=== PATIENT | female | born 1985 | race Caucasian/White ===

== ENCOUNTER 2016-09-24 18:28 | Emergency (ER) | payer OTHER ==
--- NOTE | 2016-09-24 20:29 | ER Document Report ---
ED Medical Screen (RME) - General Chief Complaint: Urinary Problem Stated Complaint: POAAIBLE KIDNEY INFECTION Mode of Arrival: Ambulatory Information source: Patient TRAVEL OUTSIDE OF THE [place] IN LAST 30 DAYS: No - HPI Onset: Other - 48 HRS Onset/Duration: Gradual, Constant, Waxing and waning Quality of pain: Sharp, Stabbing Severity: Moderate Associated Symptoms: Dysuria, Other - URINARY FREQ. Exacerbated by: Movement, Walking Relieved by: Remaining still Similar symptoms previously: Yes - W/ SEVERE UTI - Related Data Smoking: Non-smoker Frequency of alcohol use: Occasional Drug Abuse: None Allergies/Adverse Reactions: No Known Allergies Allergy (Unverified 09/24/16 20:04) Past Medical History - General Information source: Patient - Social History Cigarette use (# per day): No Chew tobacco use (# tins/day): No Frequency of alcohol use: None Drug Abuse: None Lives with: Spouse/Significant other Family history: Reviewed & Not Pertinent - Past Medical History Cardiac Medical History: Reports: None Pulmonary Medical History: Reports: None Neurological Medical History: Reports: None Endocrine Medical History: Reports: None Renal/ Medical History: Reports: Other - UTI W/ UROSEPSIS. Denies: Hx Peritoneal Dialysis GI Medical History: Reports: None Psychiatric Medical History: Reports: None Past Surgical History: Reports: Hx Section Review of Systems - Review of Systems Constitutional: Chills. denies: Fever EENT: No symptoms reported Cardiovascular: No symptoms reported Respiratory: No symptoms reported Gastrointestinal: Nausea. denies: Diarrhea, Vomiting Genitourinary: See HPI Female Genitourinary: See HPI Musculoskeletal: No symptoms reported Skin: No symptoms reported Neurological/Psychological: No symptoms reported Physical Exam - Vital signs Vitals: Temp Pulse BP Pulse Ox 98.6 F 79 117/70 100 09/24/16 20:03 09/24/16 20:03 09/24/16 20:03 09/24/16 20:03 Interpretation: Normal. No: Tachycardic, Tachypneic, Febrile Course - Vital Signs Vital signs: Temp Pulse Resp BP Pulse Ox 98.6 F 79 117/70 100 09/24/16 20:03 09/24/16 20:03 09/24/16 20:03 09/24/16 20:03
[2016-09-24] MEDS ORDERED: ONDANSETRON 4 MG TAB.RAPDIS PO ONE (20:30)
[2016-09-24] MEDS ORDERED: NITROFURANTOIN MONOHYD/M-CRYST 100 MG CAPSULE PO ONE (20:31)
[2016-09-24 20:57] LABS: AMORPHOUS SEDIMENT,URINE TRACE /HPF; APPEARANCE,URINE TURBID; BILIRUBIN,URINE NEGATIVE (NEGATIVE); GLUCOSE, URINE NEGATIVE (NEGATIVE); KETONES,URINE NEGATIVE (NEGATIVE); LEUKOCYTE ESTERASE,URINE LARGE (NEGATIVE); NITRITE,URINE NEGATIVE (NEGATIVE); PROTEIN,URINE 30 mg/dL (NEGATIVE); URINE SPECIFIC GRAVITY 1.016
--- NOTE | 2016-09-24 22:54 | ER Document Report ---
ED GI/ - General Chief Complaint: Urinary Problem Stated Complaint: POAAIBLE KIDNEY INFECTION Time seen by provider: 22:53 Mode of Arrival: Ambulatory Information source: Patient TRAVEL OUTSIDE OF THE [place] IN LAST 30 DAYS: No - HPI Patient complains to provider of: Dysuria, Flank pain Onset: Yesterday Timing/Duration: Gradual Quality of pain: Achy Severity at maximum: Moderate Severity in ED: Moderate Location: Right flank Vaginal bleeding (Compared to normal period): None Associated symptoms: Dysuria, Hematuria, Nausea, Urinary frequency Exacerbated by: Denies Relieved by: Denies Similar symptoms previously: Yes Recently seen / treated by doctor: No Notes: 09/25/16 04:11 Patient is a 31-year-old female presents complaining of urinary frequency with dysuria, right flank pain, nausea, symptoms started yesterday, and are consistent with urinary tract infections patient has had multiple times in the past, patient denies any fever, no vomiting or diarrhea, patient denies any pelvic pain or cramping, no vaginal bleeding or irregular discharge 09/25/16 04:12 Last menstrual period was July 26 - Related Data Allergies/Adverse Reactions: No Known Allergies Allergy (Unverified 09/24/16 20:04) Past Medical History - General Information source: Patient - Social History Smoking Status: Never Smoker Cigarette use (# per day): No Chew tobacco use (# tins/day): No Frequency of alcohol use: None Drug Abuse: None Lives with: Spouse/Significant other Family History: Reviewed & Not Pertinent Patient has suicidal ideation: No Patient has homicidal ideation: No - Past Medical History Cardiac Medical History: Reports: None Pulmonary Medical History: Reports: None Neurological Medical History: Reports: None Endocrine Medical History: Reports: None Renal/ Medical History: Reports: Other - UTI W/ UROSEPSIS. Denies: Hx Peritoneal Dialysis GI Medical History: Reports: None Psychiatric Medical History: Reports: None Past Surgical History: Reports: Hx Section Review of Systems - Review of Systems Constitutional: No symptoms reported EENT: No symptoms reported Cardiovascular: No symptoms reported Respiratory: No symptoms reported Gastrointestinal: No symptoms reported Genitourinary: See HPI Female Genitourinary: No symptoms reported Musculoskeletal: No symptoms reported Skin: No symptoms reported Hematologic/Lymphatic: No symptoms reported Neurological/Psychological: No symptoms reported -: Yes All other systems reviewed and negative Physical Exam - Vital signs Vitals: Temp Pulse BP Pulse Ox 98.6 F 79 117/70 100 09/24/16 20:03 09/24/16 20:03 09/24/16 20:03 09/24/16 20:03 Interpretation: Normal - General General appearance: Appears well, Alert - HEENT Head: Normocephalic, Atraumatic Eyes: Normal Pupils: PERRL - Respiratory Respiratory status: No respiratory distress Chest status: Nontender Breath sounds: Normal Chest palpation: Normal - Cardiovascular Rhythm: Regular Heart sounds: Normal auscultation Murmur: No - Abdominal Inspection: Normal Distension: No distension Bowel sounds: Normal Tenderness: Nontender Organomegaly: No organomegaly - Back Back: Normal, Nontender - Extremities General upper extremity: Normal inspection, Nontender, Normal color, Normal ROM , Normal temperature General lower extremity: Normal inspection, Nontender, Normal color, Normal ROM , Normal temperature, Normal weight bearing. No: Angelique's sign - Neurological Neuro grossly intact: Yes Cognition: Normal Orientation: AAOx4 Christian Coma Scale Eye Opening: Spontaneous [place] Coma Scale Verbal: Oriented [place] Coma Scale Motor: Obeys Commands [place] Coma Scale Total: 15 Speech: Normal Motor strength normal: LUE, RUE, LLE, RLE Sensory: Normal - Psychological Associated symptoms: Normal affect, Normal mood - Skin Skin Temperature: Warm Skin Moisture: Dry Skin Color: Normal Course - Re-evaluation Re-evalutation: 09/25/16 04:13 Patient symptoms are consistent with urinary tract infection, urinalysis confirms this, she is also noted to have a positive test and was informed of this finding, and advised to follow-up with [facility] in the next 2-3 days or return if symptoms worsen, patient was started on antibiotics, patient acknowledges understanding and agreement with this plan - Vital Signs Vital signs: Temp Pulse Resp BP Pulse Ox 98.2 F 65 16 119/72 100 09/25/16 00:02 09/25/16 00:02 09/25/16 00:02 09/25/16 00:02 09/25/16 00:02 - Laboratory Laboratory results interpreted by me: 09/24/16 20:35 Urine Protein 30 H Urine Urobilinogen 4.0 H Ur Leukocyte Esterase LARGE H Urine HCG, Qual POSITIVE H Discharge - Discharge Clinical Impression: Urinary tract infection Qualifiers: Urinary tract infection type: site unspecified Hematuria presence: with hematuria Qualified Code(s): N39.0 - Urinary tract infection, site not specified Qualifiers: Weeks of gestation: less than 8 weeks Qualified Code(s): Z3A.01 - Less than 8 weeks gestation of Condition: Stable Disposition: HOME, SELF-CARE Instructions: Urinary Tract Infection ([facility]), Nitrofurantoin ([facility]) Additional Instructions: Follow up with your primary care provider and [facility] in one to 2 days. Return to the emergency room immediately if symptoms worsen or any additional concerns. Prescriptions: Nitrofurantoin/Nitrofuran Mac [Macrobid 100 mg Capsule] 100 mg PO BID #20 capsule Referrals: BERKLEY BURKETT MD [ACTIVE STAFF] - Follow up as needed
[2016-09-25 00:07] VITALS: BP 119/72
== END 2016-09-25 00:07 | disposition home or self-care (01) ==
LOC: ER 18:28
DX: O23.41 Unspecified infection of urinary tract in pregnancy, first trimester (principal); O26.891 Other specified pregnancy related conditions, first trimester; R31.9 Hematuria, unspecified; R11.0 Nausea; R35.0 Frequency of micturition; R30.0 Dysuria; Z3A.01 Less than 8 weeks gestation of pregnancy
CPT/HCPCS: 99283; 87086; 81025; 87088; 81001; 87186; S0119; J8499

== ENCOUNTER 2017-03-08 16:48 | Outpatient (CLI) | payer MEDICAID, OTHER | END 2017-03-08 17:30 | disposition home or self-care (01) | LOC: LC 16:48 | PROVIDERS: ATTEND Specialist | PROC: 4A1HXCZ Monitoring of Products of Conception, Cardiac Rate, External Approach (ICD-10-PCS; principal; 2017-03-08) | DX: Z34.93 Encounter for supervision of normal pregnancy, unspecified, third trimester (principal) | CPT/HCPCS: 59025 ==

== ENCOUNTER 2017-03-09 13:19 | Inpatient (IN) | payer MEDICAID ==
[2017-03-09] MEDS ORDERED: CEFAZOLIN 2 GM/D5W RTU 2 GM/50 ML RTUPB IV ONE ×2 (13:24→14:09)
[2017-03-09] MEDS ORDERED: RINGERS SOLUTION,LACTATED 1,000 ML IV PRN (13:24)
[2017-03-09] MEDS ORDERED: CITRIC ACID/SODIUM CITRATE ORAL SOLN 15 ML UDCUP PO PRN (14:01)
[2017-03-09] MEDS ORDERED: CITRIC ACID/SODIUM CITRATE ORAL SOLN 15 ML UDCUP ONE (14:08)
[2017-03-09 14:44] LABS: ABSOLUTE BASOPHILS # (AUTO) 0.1 10^3/uL (0.0-0.2); ABSOLUTE LYMPHOCYTES (AUTO) 1.5 10^3/uL (0.5-4.7); ABSOLUTE MONOCYTES (AUTO) 0.6 10^3/uL (0.1-1.4); ABSOLUTE NEUT (AUTO) 8.5 10^3/uL (1.7-8.2); BASOPHILS % (AUTO) 0.5 % (0-2); EOSINOPHILS % (AUTO) 0.3 % (0-6); HEMATOCRIT 27.6 % (36.0-47.0); HEMOGLOBIN 9.2 g/dL (12.0-15.5); LYMPHOCYTES % (AUTO) 13.6 % (13-45); MEAN CORPUSCULAR HEMOGLOBIN 24.3 pg (27.0-33.4); MEAN CORPUSCULAR HGB CONC 33.4 g/dL (32.0-36.0); MEAN CORPUSCULAR VOLUME 73 fl (80-97); MONOCYTES % (AUTO) 5.7 % (3-13); RED CELL DISTRIBUTION WIDTH 16.5 % (11.5-14.0); SEGMENTED NEUTROPHILS % (AUTO) 79.9 % (42-78); WHITE BLOOD COUNT 10.7 10^3/uL (4.0-10.5)
[2017-03-09 14:56] LABS: APPEARANCE,URINE SLIGHTLY-CLOUDY; BILIRUBIN,URINE NEGATIVE (NEGATIVE); GLUCOSE, URINE NEGATIVE (NEGATIVE); KETONES,URINE NEGATIVE (NEGATIVE); LEUKOCYTE ESTERASE,URINE SMALL (NEGATIVE); NITRITE,URINE NEGATIVE (NEGATIVE); PROTEIN,URINE NEGATIVE (NEGATIVE); URINE SPECIFIC GRAVITY 1.006; UROBILINOGEN,URINE NEGATIVE mg/dL (<2.0)
[2017-03-09 15:12] LABS: URINE BARBITURATES SCREEN NEGATIVE; URINE METHADONE SCREEN NEGATIVE; URINE OPIATES LOW NEGATIVE; URINE PHENCYCLIDINE SCREEN NEGATIVE
[2017-03-09] MEDS ORDERED: OXYTOCIN 10 UNIT/ML VIAL ONE (15:15)
[2017-03-09] MEDS ORDERED: PROPOFOL INJ 200 MG/20 ML VIAL IV ONE (15:15)
[2017-03-09] MEDS ORDERED: MIDAZOLAM 2 MG/2 ML INJ ONE (15:16)
[2017-03-09] MEDS ORDERED: FENTANYL CITRATE INJ/PF 100 MCG/2 ML AMPUL ONE (15:16)
[2017-03-09] MEDS ORDERED: EPHEDRINE SULFATE INJ 50 MG/1 ML AMPULE ONE (15:16)
[2017-03-09] MEDS ORDERED: MEPERIDINE HCL/PF INJ 25 MG/1 ML DISP.SYRIN IV PRN (15:47)
[2017-03-09] MEDS ORDERED: ONDANSETRON HCL INJ/PF 4 MG/2 ML SDV IV PRN (15:47)
[2017-03-09] MEDS ORDERED: PROMETHAZINE HCL INJ 25 MG/1 ML VIAL IV PRN ×2 (15:47→16:05)
[2017-03-09] MEDS ORDERED: DIPHENHYDRAMINE HCL 50 MG/ML VIAL IV PRN (15:47)
[2017-03-09] MEDS ORDERED: FENTANYL CITRATE INJ/PF 100 MCG/2 ML AMPUL IV PRN ×3 (15:47)
[2017-03-09] MEDS ORDERED: OXYTOCIN/NORMAL SALINE 20 UNIT/1,000 ML RTUINJ IV PRN (16:05)
[2017-03-09] MEDS ORDERED: SIMETHICONE 80 MG TAB.CHEW PO PRN (16:05)
[2017-03-09] MEDS ORDERED: ACETAMINOPHEN 325 MG TABLET PO PRN (16:05)
[2017-03-09] MEDS ORDERED: DIPH/PERTUSS(ACELL)/TETANUS VAC/PF 0.5 ML SYR (>=10YO) IM PRN (16:05)
[2017-03-09] MEDS ORDERED: OXYCODONE-ACETAMINOPHEN 5-325 MG TABLET PO PRN (16:05)
[2017-03-09] MEDS ORDERED: MEASLES,MUMPS&RUBELLA VACC/PF 0.5 ML VIAL SUBCUT PRN (16:05)
[2017-03-09] MEDS ORDERED: HYDROMORPHONE HCL INJ/PF 2 MG/ML AMPULE IV PRN (16:05)
[2017-03-09] MEDS ORDERED: KETOROLAC TROMETHAMINE INJ/PF 30 MG/1 ML SDV IV ONE (16:07)
[2017-03-09] MEDS ORDERED: ACETAMINOPHEN 100 ML IV ONE (16:18)
[2017-03-09] MEDS ORDERED: KETOROLAC TROMETHAMINE INJ/PF 30 MG/1 ML SDV ONE (16:32)
[2017-03-09] MEDS: MORPHINE SULFATE 10 MG/ML INJ IV PRN ×3 (17:11→17:47)
[2017-03-09] MEDS ORDERED: MORPHINE SULFATE 10 MG/ML INJ ONE (17:11)
--- NOTE | 2017-03-09 17:22 | Delivery Summary ---
Del Sum A-C Datetime Report Generated by CPN: 03/09/2017 17:21 DELIVERY PERSONNEL DELIVERY PERSONNEL: [id number] Delivery Doctor:: Lashell Hilton MD Anesthesiologist:: Jennifer Garcia MD SOLAR SALES ASSOCIATE:: Michelle Tejeda CRNA Labor and Delivery Nurse:: Nikki Murphy RN Nursery Nurse:: Julia Rangel RN Nursery Nurse:: Connie Ivan RN Student Observers:: Moe Recinos Senior Director Creative Services/MANAGED CARE COORDINATOR: Manuel Garcia CST Senior Director Creative Services/MANAGED CARE COORDINATOR: Silvana Mcgee CST Additional Personnel: : Ines Villavicencio RN MATERNAL INFORMATION Delivery Anesthesia: Spinal Meds After Delivery Comment: See Anesthesia Estimated Blood Loss (ml): 600 Maternal Complications: None LABOR SUMMARY EDC: 02/20/2017 00:00 No. Babies in Womb: 1 Attempted: No Labor Anesthesia: None LABOR INFORMATION Reason for Induction: Not Applicable Oxytocin: N/A Group B Beta Strep: Unknown Antibiotics # of Doses: 1 Antibiotics Time of Last Dose: 1503 Name of Antibiotic Given: Ancef Steroids Given: None Reason Steroids Not Administered: Not Applicable MEMBRANES Membranes Rupture Method: Artificial Rupture of Membranes: 03/09/2017 15:29 Length of Rupture (hr): 0.00 Amniotic Fluid Color: Clear Amniotic Fluid Amount: Moderate Amniotic Fluid Odor: Normal STAGES OF LABOR Stage 3 hr: 0 Stage 3 min: 2 VAGINAL DELIVERY Laceration Extension: N/A Laceration Repair: Not Applicable Sponge Count Correct: N/A Sharps Count Correct: N/A CSECTION DELIVERY Primary Indication: Repeat Elective CSection Urgency: Non-Scheduled CSection Incidence: Repeat Labor: No Labor Elective: Elective CSection Incision: Lower Uterine Transverse Sterilization Procedure: Ring and Clip Uterine Closure: Double-layer closure BABY A INFORMATION Delivery Date/Time: 03/09/2017 15:29 Method of Delivery: Vaginal Born in Route : No : N/A Forceps: N/A (Annotations: Data stored by CPN on behalf of user) Vacuum Extraction: N/A (Annotations: Data stored by CPN on behalf of user) Shoulder Dystocia : No (Annotations: Data stored by CPN on behalf of user) PRESENTATION/POSITION BABY A Presentation: Cephalic Cephalic Presentation: Vertex PLACENTA INFORMATION BABY A Placenta Delivery Time : 03/09/2017 15:31 Placenta Method of Delivery: Manual Removal Placenta Status: Delivered SCORES BABY A Heart Rate 1 min: >100 bpm Resp Effort 1 min: Good Cry Reflex Irritability 1 min: Cough or Sneeze or Pulls Away Muscle Tone 1 min: Active Motion Color 1 min: Body Bells, Extremities Blue Resuscitation Effort 1 min: Tactile Stimulation SCORE 1 MIN: 9 Heart Rate 5 min: >100 bpm Resp Effort 5 min: Good Cry Reflex Irritability 5 min: Cough or Sneeze or Pulls Away Muscle Tone 5 min: Active Motion Color 5 min: Body Bells, Extremities Blue Resuscitation Effort 5 min: N/A SCORE 5 MIN: 9 INFANT INFORMATION BABY A Gestational Age at Delivery: 42.2 Gestational Status: Post Term- >= 42 Weeks Infant Outcome : Liveborn Condition : Stable Infant Sex: Male IDENTIFICATION BABY A Verification Date/Time: 03/09/2017 14:31 ID Band Number: [id number] Mother's Name Verified: Yes Infant RN Verifying : Darby Tran, RN and B. Stormydy, RN WEIGHT/LENGTH BABY A Birthweight (gm): 4240 Weight (lb): 9 Weight (oz): 6 Length (in): 22.00 Infant Length (cm): 55.88 CORD INFORMATION BABY A No. Cord Vessels: 3 Nuchal Cord : N/A Cord Blood Taken: Yes-For Storage (Mom's Blood type +) Infant Suction: None ASSESSMENT BABY A Skin to Skin: Yes Skin to Skin Time (min): 30 BABY B INFORMATION : N/A SIGNATURES Signature: with User ID: [email or web address]
--- NOTE | 2017-03-09 17:58 | OPERATIVE REPORT E ---
Operative Report NAME: CHRISTY BRIGGS : 1985 AGE: 31Y DATE OF SURGERY: 03/09/2017 ROOM: LR200 PREOPERATIVE DIAGNOSES: 1. A 42 week 3 day intrauterine . 2. History of section x2, for repeat. 3. Poor care. 4. Patient desiring permanent sterilization. POSTOPERATIVE DIAGNOSES: 1. A 42 week 3 day intrauterine . 2. History of section x2, for repeat. 3. Poor care. 4. Patient desiring permanent sterilization. OPERATION: 1. Repeat low transverse section. 2. Bilateral tubal ligation using Filshie clips. SURGEON: Low Ko D.O. TURN DOWN MAN: None. ANESTHESIA: Spinal. ESTIMATED BLOOD LOSS: 600 mL. COMPLICATIONS: None. TISSUE REMOVED OR ALTERED: Pathology: Placenta. FINDINGS: 1. A viable male at 1529 hours on March 09, 2017; scores 8 at 1 and 9 at 5. 2. Normal-appearing bilateral fallopian tubes and ovaries. PROCEDURE: The patient was taken to the operating room where a spinal anesthesia was administered. Once this was done and found to be adequate, she was placed in the dorsal supine position with a leftward tilt upon the operating room table. She was then prepped and draped in the normal sterile fashion. A scalpel was then used to make a Pfannenstiel skin incision. This skin incision was carried down through the subcutaneous to the layer of the fascia. The fascia was incised in the midline. Fascial incision was then extended bilaterally using the Bovie cautery. The superior fascial edge was grasped with Jorge clamps, elevated, and rectus muscle was dissected off sharply and bluntly. Attention was then turned to the inferior fascial edge which was grasped with Jorge clamps, elevated, and the rectus muscle was dissected off sharply and bluntly. Rectus muscles were then in the midline, peritoneum identified and entered bluntly with the surgeon's hands. A bladder blade was inserted. A scalpel was then used to make a low transverse hysterotomy incision. The infant was delivered through this incision in the cephalic position without difficulty and atraumatically. The nose and mouth were suction, the cord was clamped and cut, and was handed off to the awaiting nurses. Cord blood was obtained. The placenta was then manually removed from the uterus. The uterus was exteriorized and cleared of all clots and debris. The hysterotomy incision was then re-approximated using 2 layers of #1-Vicryl in a running locking fashion. Following closure of the second layer, excellent hemostasis was noted. A Filshie clip was then placed in the midportion of each fallopian tube without difficulty. The uterus was then returned to the abdomen. Again, the hysterotomy incision was reinspected and found to have excellent hemostasis. Rectus muscle were then re-approximated using #1-Vicryl in interrupted sutures. The fascia was then closed using #1-Vicryl in a running non-locking fascia. The subcutaneous space was made hemostatic using Bovie cautery. The skin was then closed with absorbable argenis, covered with an OpSite and then with a fresh dressing. At this point in time, the procedure was terminated. All sponge, lap, needle counts were correct x2. The patient tolerated the procedure well. The patient was taken to recovery in stable condition. DICTATING PHYSICIAN: Low Ko DO [id number] PHY#: [id number] ID: [id number] JOB#: [id number] ACCT: [id number] cc:Low Ko D.O. >
--- NOTE | 2017-03-09 18:17 | Admission Physical ---
Datetime Report Generated by CPN: 03/09/2017 18:17 CURRENT ADMISSION Chief Complaint: Scheduled Section Indication for Induction: Not Applicable Admit Plan: Admit to Unit; Initiate Section Protocol ALLERGIES Medication Allergies: No Medication Allergies: No Known Allergies (03/08/2017) Medication Allergies: No Known Allergies (09/24/2016) Latex: No Latex Allergies Food Allergies: NOne Environmental Allergies: None OBSTETRICAL HISTORY EDC: 02/20/2017 00:00 : 3 Para: 2 Term: 2 : 0 SAB: 0 IAB: 0 Ectopic: 0 Livin Cesareans: 2 VBACs: 0 Multiple Births: 0 Gestational Diabetes: No Rh Sensitization: No Incompetent Cervix: No MARINA: No Infertility: No ART Treatment: No Uterine Anomaly: No IUGR: No Hx Previous C/S: Yes Macrosomia: No Hx Loss/Stillborn: No PIH: No Hx : No Placenta Previa/Abruption: No Depression/PP Depression: No PTL/PROM: No Post Hemorrhage: No Current Procedures: Ultrasound Obstetrical History Comments: G1- G2- G3- Current (Annotations: Data stored by [facility] on behalf of user) SEE RECORDS Alcohol: No Marijuana : No Cocaine: No Other Illicit Drugs: No Cigarettes: Never Smoker. [id number] MEDICAL HISTORY Diabetes: No Blood Transfusion: No Pulmonary Disease (Asthma, TB): No Breast Disease: No Hypertension: No Router Operator Surgery: No Hosp/Surgery: No Autoimmune Disorder: No Anesthetic Complications: No Kidney Disease: No Abnormal Pap Smear: No Neuro/Epilepsy: No Psychiatric Disorders: No Hepatitis/Liver Disease: No Significant Family History: No Varicosities/Phlebitis: No Trauma/Violence : No Thyroid Dysfunction: No INFECTIOUS HISTORY Gonorrhea: No Genital Herpes: No Chlamydia: No Tuberculosis: No Syphilis: No Hepatitis: No HIV/AIDS Exposure: No Rash or Viral Illness: No HPV: No PHYSICAL EXAM General: Normal HEENT: Normal Neurologic: Normal Thyroid: Deferred Heart: Normal Lungs: Normal Breast: Deferred Back: Normal Abdomen: Normal Genitourinary Exam: Normal Extremities: Normal DTRs: Normal Pelvic Type: Adequate Vital Signs: Reviewed; Within Normal Limits MEMBRANES Membranes: Intact FETUS A EGA: 42.3 Monitoring: External US FHR- Baseline: 135 Variability: Moderate 6-25bpm Accelerations: 15X15 Decelerations: None FHR Category: Category I Presentation: Vertex Admit Comment: Will admit for Repeat C/S secondary to h/o 2 previous c/s PLANS FOR LABOR AND DELIVERY Labor and Delivery: None Pain Management: Spinal Feeding Preference: Breast Benefit of Breast Feed Discussed: Yes Circumcision: Yes INFORMED CONSENT Signature: with User ID: [email or web address]
[2017-03-09] MEDS: DOCUSATE SODIUM 100 MG CAPSULE PO SCH (18:27)
[2017-03-09] MEDS: OXYCODONE-ACETAMINOPHEN 5-325 MG TABLET PO PRN (18:27)
[2017-03-10] MEDS: OXYCODONE-ACETAMINOPHEN 5-325 MG TABLET PO PRN ×4 (02:50→19:53)
[2017-03-10 06:19] LABS: HEMATOCRIT 25.1 % (36.0-47.0); HEMOGLOBIN 8.4 g/dL (12.0-15.5); HGB HCT DIFFERENCE 0.1; MEAN CORPUSCULAR HEMOGLOBIN 24.2 pg (27.0-33.4); MEAN CORPUSCULAR HGB CONC 33.5 g/dL (32.0-36.0); MEAN CORPUSCULAR VOLUME 72 fl (80-97); RED BLOOD COUNT 3.48 10^6/uL (3.72-5.28); RED CELL DISTRIBUTION WIDTH 16.3 % (11.5-14.0); WHITE BLOOD COUNT 13.7 10^3/uL (4.0-10.5)
--- NOTE | 2017-03-10 09:29 | PDOC PROGRESS REPORT ---
Subjective-OB Subjective: Post Delivery Day: 31 year old. Denies any needs at this time Doing well, no c/o, sitting up in bed, voiding x 3, no gas, eating well, pain under control Physical Exam (OB) Vital Signs: Temp Pulse Resp BP Pulse Ox 98.1 F 79 15 111/70 100 03/10/17 07:28 03/10/17 07:28 03/10/17 07:28 03/10/17 07:28 03/10/17 07:28 Intake & Output 03/09/17 03/10/17 03/11/17 06:59 06:59 06:59 Intake Total 375 Output Total 1350 Balance -975 Weight 79.15 kg - Dressing Removed: Yes Incision: Dressing, Well Approximated Closure Type: Sutures - Lochia Lochia Amount: Scant < 10 ml Lochia Color: Rubra/Red - Abdomen Description: Soft Hernia Present: No Fundal Description: Firm, Midline Fundal Height: u/u - u/2 Objective-Diagnostic Laboratory: 03/10/17 06:10 03/09/17 03/09/17 03/09/17 14:00 14:32 14:32 WBC 10.7 H RBC 3.80 Hgb 9.2 L Hct 27.6 L MCV 73 L MCH 24.3 L MCHC 33.4 RDW 16.5 H Plt Count 182 Seg Neutrophils % 79.9 H Lymphocytes % 13.6 Monocytes % 5.7 Eosinophils % 0.3 Basophils % 0.5 Absolute Neutrophils 8.5 H Absolute Lymphocytes 1.5 Absolute Monocytes 0.6 Absolute Eosinophils 0.0 Absolute Basophils 0.1 Urine Color YELLOW Urine Appearance SLIGHTLY-CLOUDY Urine pH 7.0 Ur Specific [place] 1.006 Urine Protein NEGATIVE Urine Glucose (UA) NEGATIVE Urine Ketones NEGATIVE Urine Blood NEGATIVE Urine Nitrite NEGATIVE Ur Leukocyte Esterase SMALL H Blood Type A POSITIVE Antibody Screen NEGATIVE 03/10/17 06:10 WBC 13.7 H RBC 3.48 L Hgb 8.4 L Hct 25.1 L MCV 72 L MCH 24.2 L MCHC 33.5 RDW 16.3 H Plt Count 180 Seg Neutrophils % Lymphocytes % Monocytes % Eosinophils % Basophils % Absolute Neutrophils Absolute Lymphocytes Absolute Monocytes Absolute Eosinophils Absolute Basophils Urine Color Urine Appearance Urine pH Ur Specific [place] Urine Protein Urine Glucose (UA) Urine Ketones Urine Blood Urine Nitrite Ur Leukocyte Esterase Blood Type Antibody Screen Assessment and Plan(PN) - Assessment and Plan (1) Delivery by elective caesarean section Is this a current diagnosis for this admission?: Yes (2) Anemia Qualifiers: Anemia type: iron deficiency Is this a current diagnosis for this admission?: Yes - Time Spent with Patient Time with patient: Less than 15 minutes Medications reviewed and adjusted accordingly: Yes - Disposition Anticipated Discharge: Home Within: within 24 hours
[2017-03-10] MEDS: PRENATAL VITAMIN W-O CA NO5/FE FUMARATE/FA CAPSULE PO SCH (09:38)
[2017-03-10] MEDS: DOCUSATE SODIUM 100 MG CAPSULE PO SCH ×2 (09:38→17:40)
[2017-03-10] MEDS: IBUPROFEN 800 MG TABLET PO PRN ×2 (14:26→22:07)
[2017-03-11] MEDS: OXYCODONE-ACETAMINOPHEN 5-325 MG TABLET PO PRN ×4 (02:50→21:38)
[2017-03-11] MEDS: IBUPROFEN 800 MG TABLET PO PRN ×3 (05:04→21:39)
[2017-03-11] MEDS: PRENATAL VITAMIN W-O CA NO5/FE FUMARATE/FA CAPSULE PO SCH (09:26)
[2017-03-11] MEDS: DOCUSATE SODIUM 100 MG CAPSULE PO SCH ×2 (09:26→17:10)
--- NOTE | 2017-03-11 10:45 | PDOC PROGRESS REPORT ---
Subjective-OB Subjective: Post Delivery Day: 1 31 year old. Denies any needs at this time, states lochia is stable, pain moderately well controlled, is not yet ready for discharge. Tolerating diet. Physical Exam (OB) Vital Signs: Temp Pulse Resp BP Pulse Ox 98.5 F 78 16 122/68 100 03/11/17 08:34 03/11/17 08:34 03/11/17 08:34 03/11/17 08:34 03/11/17 08:34 Intake & Output 03/10/17 03/11/17 03/12/17 06:59 06:59 06:59 Intake Total 375 1200 Output Total 1350 Balance -975 1200 Weight 79.15 kg - PIH/Pre-Eclampsia DTR's: 2 + Clonus: Negative Headache: Absent Epigastric Pain: No Visual Changes: No - Dressing Removed: No - Opsite Incision: Dressing Closure Type: Sutures - Lochia Lochia Amount: Small 10-25 ml Lochia Color: Rubra/Red - Abdomen Description: Soft, Round Hernia Present: No Fundal Description: Firm, Midline Fundal Height: u/u - u/2 Objective-Diagnostic Laboratory: 03/10/17 06:10 Assessment and Plan(PN) - Time Spent with Patient Medications reviewed and adjusted accordingly: Yes - Disposition Anticipated Discharge: Home
[2017-03-12] MEDS: IBUPROFEN 800 MG TABLET PO PRN (07:58)
[2017-03-12] MEDS: OXYCODONE-ACETAMINOPHEN 5-325 MG TABLET PO PRN (07:59)
[2017-03-12] MEDS: DOCUSATE SODIUM 100 MG CAPSULE PO SCH (09:09)
[2017-03-12] MEDS: PRENATAL VITAMIN W-O CA NO5/FE FUMARATE/FA CAPSULE PO SCH (09:09)
--- NOTE | 2017-03-12 09:37 | PDOC PROGRESS REPORT ---
Subjective-OB Subjective: Post Delivery Day: 31 year old. Denies any needs at this time Doing well, ready to go home, breast feeding, passing gas, voiding, eating well , hsb at BS Physical Exam (OB) Vital Signs: Temp Pulse Resp BP Pulse Ox 98.4 F 77 16 121/83 99 03/12/17 08:55 03/12/17 08:55 03/12/17 08:55 03/12/17 08:55 03/12/17 08:55 Intake & Output 03/11/17 03/12/17 03/13/17 06:59 06:59 06:59 Intake Total 1200 1000 Balance 1200 1000 - PIH/Pre-Eclampsia DTR's: 2 + Clonus: Negative Headache: Absent Epigastric Pain: No Visual Changes: No - Dressing Removed: No Incision: Dressing Closure Type: OP Site - Lochia Lochia Amount: Moderate 25-50 ml Lochia Color: Rubra/Red - Abdomen Description: Soft, Round Hernia Present: No Fundal Description: Firm, Midline Fundal Height: u/u - u/2 Objective-Diagnostic Laboratory: 03/10/17 06:10 Assessment and Plan(PN) - Assessment and Plan (1) Delivery by elective caesarean section Is this a current diagnosis for this admission?: Yes (2) Anemia Qualifiers: Anemia type: iron deficiency Is this a current diagnosis for this admission?: Yes - Time Spent with Patient Time with patient: Less than 15 minutes Medications reviewed and adjusted accordingly: Yes - Disposition Anticipated Discharge: Home Within: Other - home today
--- NOTE | 2017-03-12 09:42 | PDOC DISCHARGE SUMMARY ---
Final Diagnosis Discharge Date: 03/12/17 - Final Diagnosis (1) Delivery by elective caesarean section Is this a current diagnosis for this admission?: Yes (2) Anemia Is this a current diagnosis for this admission?: Yes Discharge Data - Discharge Medication Home Medications: Iron 18 mg PO ACSUPPER 03/08/17 57/Iron/Folic/Dss/Dha [Extra-Virt Plus Dha Softgel] 1 cap PO [id number] 03/08/17 Ibuprofen [Motrin 800 mg Tablet] 800 mg PO TIDP PRN #60 tablet 03/12/17 Oxycodone HCl/Acetaminophen [Percocet 5-325 mg Tablet] 1 tab PO Q4HP PRN #30 tablet 03/12/17 Gestational Age: 42.2 Reason(s) for Admission: Ceasarean Section-Repeat - limited care, GBS unknown Procedures: Ultrasound Intrapartum Procedure(s): : Low Cervical, Transverse - Data Baby 1 Male at 1 minute: 9 at 5 minutes: 9 Weight: 4.252 kg Home with Mother: Yes Complications: No - Diagnosis Test Laboratory: Temp Pulse Resp BP Pulse Ox 98.4 F 77 16 121/83 99 03/12/17 08:55 03/12/17 08:55 03/12/17 08:55 03/12/17 08:55 03/12/17 08:55 03/09/17 03/09/17 03/10/17 14:00 14:32 06:10 RBC 3.80 3.48 L Hgb 9.2 L 8.4 L Hct 27.6 L 25.1 L Urine Opiates Screen NEGATIVE - Discharge information/Instructions Discharge Activity: Activity As Tolerated Discharge Diet: As Tolerated, Regular Disposition: HOME, SELF-CARE Follow up with: [facility] in: 1, Weeks
[2017-03-12 10:03] VITALS: BP 131/64
== END 2017-03-12 13:14 | disposition home or self-care (01) | DRG 766 ==
LOC: LC 13:19 → LR 13:51 → 2S 18:05
PROVIDERS: ADMIT Obstetrics & Gynecology; ATTEND Obstetrics & Gynecology
PROC: 10D00Z1 Extraction of Products of Conception, Low, Open Approach (ICD-10-PCS; principal; 2017-03-09)
PROC: 0UL70CZ Occlusion of Bilateral Fallopian Tubes with Extraluminal Device, Open Approach (ICD-10-PCS; 2017-03-09)
PROC: 4A1HXCZ Monitoring of Products of Conception, Cardiac Rate, External Approach (ICD-10-PCS; 2017-03-09)
PROC: 3E0234Z Introduction of Serum, Toxoid and Vaccine into Muscle, Percutaneous Approach (ICD-10-PCS; 2017-03-12)
DX: O34.211 Maternal care for low transverse scar from previous cesarean delivery (principal); O99.02 Anemia complicating childbirth; D50.9 Iron deficiency anemia, unspecified; Z3A.49 Greater than 42 weeks gestation of pregnancy; Z37.0 Single live birth; Z30.2 Encounter for sterilization; Z23 Encounter for immunization
CPT/HCPCS: 1961; 36415; 80307; 81005; 85025; 85027; 86592; 86850; 86900; 86901; 88307; 90715; 94799; J0131; J0690; J1170; J1885; J2250; J2270; J2590; J2704; J3010; J3490

== ENCOUNTER 2019-03-08 11:06 | Emergency (ER) | payer SELFPAY ==
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
[2019-03-08] MEDS ORDERED: OXYCODONE HCL IR 5 MG TABLET PO ONE (11:23)
[2019-03-08] MEDS ORDERED: DIPH/PERTUSS(ACELL)/TETANUS VAC/PF 0.5 ML SYR (>=10YO) IM ONE (11:23)
[2019-03-08 11:26] VITALS: BP 138/81
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
[2019-03-08] MEDS ORDERED: ONDANSETRON HCL INJ/PF 4 MG/2 ML SDV IV ONE (12:35)
[2019-03-08] MEDS ORDERED: RINGERS SOLUTION,LACTATED 1,000 ML IV ONE (12:35)
[2019-03-08] MEDS ORDERED: MORPHINE SULFATE 10 MG/ML INJ IV ONE (12:35)
== END 2019-03-08 14:51 | disposition short-term general hospital (02) ==
LOC: ER 11:06
DX: T23.211A Burn of second degree of right thumb (nail), initial encounter (principal); X10.2XXA Contact with fats and cooking oils, initial encounter
CPT/HCPCS: 90715; J2270; J2405; J7120; 90471; 96361; 96374; 96375; 99283